=== PATIENT | female | born 1940 ===

== ENCOUNTER → 2019-12-30 09:34 | Outpatient (CLI) | payer MEDICARE, OTHER, SELFPAY ==
[2019-12-30 10:37] LABS: Add Manual Diff / Slide Review NO; Basophils Absolute Auto 0 /uL (0-100); Basophils Percent Auto 0.7 % (0-2); Eosinophils Absolute Auto 100 /uL (0-450); Eosinophils Percent Auto 2.4 % (2-4); Hematocrit 38.6 % (36-46); Hemoglobin 13.5 g/dL (12.0-16.0); Lymphocytes Absolute Auto 700 /uL (1100-4500); Lymphocytes Percent Auto 18.2 % (25-40); Mean Corpuscular Hemoglobin 32.8 PG (26-34); Mean Corpuscular Volume 93.7 fL (80-100); Monocytes Absolute Auto 400 /uL (0-900); Monocytes Percent Auto 9.6 % (3-14); Neutrophils Absolute Auto 2700 /uL (1500-7000); Neutrophils Percent Auto 69.1 % (50-75); Platelet Count 214 X10^3/uL (150-400); Red Blood Cell Count 4.12 X10^6/uL (4.0-5.2); Red Cell Distribution Width 13.4 % (11.6-14.8)
[2019-12-30 10:59] LABS: BUN Creatinine Ratio 39.3 (6-22); Blood Urea Nitrogen 22 mg/dL (7-17); Calcium 9.6 mg/dL (8.4-10.2); Carbon Dioxide 31 mmol/L (22-32); Chloride 101 mmol/L (98-107); Estimated Glomerular Filt Rate > 60.0 mL/min (>60); Glucose 96 mg/dL (80-110); HEMOLYSIS < 15 (0-50); Magnesium 1.6 mg/dL (1.6-2.3); Sodium 138 mmol/L (137-145)
[2019-12-30 11:58] LABS: TSH w/ Reflex to FT4 1.97 uIU/mL (0.47-4.68)
== END ==
PROVIDERS: PCP Internal Medicine; Referring Provider Internal Medicine; Visit Provider Internal Medicine
DX: I49.9 Cardiac arrhythmia, unspecified (principal); I10 Essential (primary) hypertension
CPT/HCPCS: 36415; 80048; 83735; 84100; 84443; 85025

== ENCOUNTER → 2020-03-06 15:49 | Outpatient (CLI) | payer MEDICARE, OTHER, SELFPAY ==
[2020-03-06 17:14] LABS: BUN Creatinine Ratio 41.3 (6-22); Blood Urea Nitrogen 26 mg/dL (7-17); Calcium 9.3 mg/dL (8.4-10.2); Carbon Dioxide 32 mmol/L (22-32); Chloride 103 mmol/L (98-107); Estimated Glomerular Filt Rate > 60.0 mL/min (>60); Glucose 102 mg/dL (80-110); HEMOLYSIS 16 (0-50); Potassium 4.4 mmol/L (3.4-5.1); Sodium 138 mmol/L (137-145)
[2020-03-06 17:30] LABS: Vitamin D 25 Hydroxy (D3) 33.9 ng/mL (30.0-100.0)
== END ==
PROVIDERS: PCP Internal Medicine; Referring Provider Internal Medicine; Visit Provider Internal Medicine
DX: M81.0 Age-related osteoporosis without current pathological fracture (principal)
CPT/HCPCS: 36415; 80048; 82306

== ENCOUNTER → 2020-07-09 09:50 | Outpatient (CLI) | payer MEDICARE, SELFPAY ==
--- NOTE | 2020-08-03 16:59 | PM.CARDMON.1 ---
Centralized Traffic Control Operator Report Referral & Results Date Patient Seen: 07/09/20 Requesting provider: Fito Abrams Indication: Arrhythmia Duration of monitoring (days): 7 Diary information: There were 6 patient triggered events and 1 patient diary entry Patient triggered events were associated with (within 45 seconds) sinus rhythm, PVCs, PACs, and ventricular trigeminy Patient diary event was associated with (within 45 seconds) sinus rhythm and PVCs Data: Minimum heart rate identified was 44 beats per minute at 23:40 on 07/15/2020 Maximum heart rate identified was 154 beats per minute at 11:42 on 07/09/2020 Maximum overall heart rate was 197 beats per minute at 14:23 on 07/14/2020 during a run of SVT Less than 1% of identified beats were supraventricular ectopic in origin which would classify them as rare Approximately 2.2% of identified beats were ventricular ectopic in origin which would classify them as occasional There were 3 runs of SVT the fastest being the 4 beat run at 197 beats per minute as above, the longest lasting 11 beats at a rate of 155 beats per minute. There were also runs of ventricular bigeminy and trigeminy including a 20.2nd run of ventricular trigeminy and a 10.2nd run of ventricular bigeminy Impression: 7 day cardiac cath technologist showing very rare very brief runs of SVT as above Patient with occasional PVCs including brief runs of ventricular bigeminy and ventricular trigeminy Clinical correlation suggested
== END ==
PROVIDERS: PCP Internal Medicine; Referring Provider Internal Medicine; Visit Provider Internal Medicine
DX: I49.9 Cardiac arrhythmia, unspecified (principal)
CPT/HCPCS: 93242; 93244

== ENCOUNTER 2021-02-01 10:04 | Emergency (ER) | payer MEDICARE, SELFPAY ==
[2021-02-01 10:11] VITALS: BP 165/72; PULSE 82; RESP 17; TEMP 36.3; O2SAT 99
--- NOTE | 2021-02-01 10:15 | DI.RAD.S_ITS ---
PROCEDURE: XR HAND RT MIN 3V INDICATIONS: fall, bruising and pain right hand. TECHNIQUE: 3 views of the hand(s) acquired. COMPARISON: None. FINDINGS: Bones: There is a mildly displaced fracture of the right 5th metacarpal shaft. No definite intra-articular involvement can be seen. There is a remote, healed fracture of the 3rd metacarpal shaft and potentially the 4th metacarpal shaft as well. Prominent degenerative changes are seen throughout, which are most prominent involving the 1st carpometacarpal joint. Milder degenerative changes are seen elsewhere, including involving the distal interphalangeal joints. Soft tissues: No suspicious soft tissue calcifications. IMPRESSION: There is a mildly displaced 5th metacarpal fracture seen. Remote fracture of the 3rd metacarpal shaft and potentially the 4th metacarpal shaft. Advanced underlying degenerative changes are seen, which are worst involving the 1st carpometacarpal joint. Dictated by: Bong Johnson M.D. on 02/01/2021 at 10:13 Approved by: Bong Johnson M.D. on 02/01/2021 at 10:16
--- NOTE | 2021-02-01 10:57 | ED.FALL ---
HPI - Fall General Chief Complaint: Fall Stated Complaint: RT HAND INJURY Time Seen by Provider: 02/01/21 10:23 Source: patient Mode of arrival: Ambulatory History of Present Illness HPI Narrative: 80-year-old female who is here for evaluation of a right hand injury. She states that 3 days ago she was out on a hike and fell forward. She did hit her head. No loss of consciousness. Not on blood thinners. Is here because of continued pain in her right hand. She does have other skin abrasions on her face and her knees but states that these seem to be healing appropriately with the time frame since the fall. Related Data Home Medications Medication Instructions Recorded Confirmed hydrochlorothiazide 25 mg tablet 12.5 mg PO DAILY tab 07/07/20 02/01/21 aspirin 81 mg tablet 81 mg PO DAILY 02/01/21 02/01/21 Allergies Allergy/AdvReac Type Severity Reaction Status Date / Time Penicillins Allergy Intermediate Hives Verified 02/01/21 10:14 Taxal Allergy Severe Anaphylaxis Uncoded 08/18/20 09:19 Review of Systems Eyes Comments: No vision changes, blurry vision or double vision ENT Comments: No dental pain, loose teeth or missing teeth Musculoskeletal Comments: Right hand injury Integumentary/Breasts Comments: Abrasions to face and knees Hematologic/Lymphatic On Anticoagulants: No Patient History Medical History Ankle fracture Chicken pox Chronic back pain Endometriosis (~1959) Essential hypertension (~1976) Foot pain H/O adenomatous polyp of colon (~2009) Measles Osteoarthritis Ovarian cyst (~1962) Painful menstrual periods (~1952) Peripheral neuropathy (~2003) Personal history of breast cancer (~2003) Rubella Surgical History (Updated 08/17/20 @ 22:19 by Gege Mccain) Anesthesia S/P bilateral foot surgery (~1999) S/P carpal tunnel release S/P hip replacement (~2014) S/P inguinal hernia repair S/P lumpectomy, left breast (~2003) S/P shoulder surgery (~1991) S/P total knee arthroplasty (~2018) Family History (Updated 08/17/20 @ 22:21 by Gege Mccain) Father Lung cancer Hypertension Parkinson disease Mother Uterine cancer Brother Autoimmune deficiency syndrome Grandfather History of heart disease Grandmother No problems noted. Social History Smoking Status: Never smoker Smoking Status: Never smoker alcohol intake frequency: 0-2 drinks per day Substance Use Type: does not use Exam Initial Vital Signs Initial Vital Signs: Vital Signs Temperature 97.4 F L 02/01/21 10:11 Pulse Rate 82 02/01/21 10:11 Respiratory Rate 17 02/01/21 10:11 Blood Pressure 165/72 H 02/01/21 10:11 Pulse Oximetry 99 02/01/21 10:11 Const General: cooperative, healthy appearing and comfortable HENMT Head: normal to inspection and normocephalic Eyes Pupils: PERRL EOM: EOM intact bilaterally Other: Superficial abrasions located around the right eye. Resp Effort & Inspection: normal respiratory effort Skin Other: Superficial abrasions located around the right eye. No active bleeding. No signs of infection. Neuro General: patient alert, patient awake and patient oriented x3 Extrem Other: Musculoskeletal exam is unremarkable except for tenderness to palpation along the right 5th metacarpal. Psych Appearance: grossly normal and well kempt Procedures Orthopedic Splinting/Casting Injury #1: Side: right Upper Extremity Injury Location: hand Upper Extremity Immobilizer: ulnar gutter Post splinting neuro exam: no change Post splinting vascular exam: no change Placed by: Nursing Scores GCS Kan coma scale eye opening: Spontaneous Kan coma scale verbal response: Orientated Standish coma scale motor response: Obey commands Standish coma scale total score: 15 Nexus Score for C-Spine Focal Neurologic deficit present: No Midline spinal tenderness present: No Altered level of conciousness present: No Intoxication present: No Distracting Injury Present: No Nexus Criteria for C-spine: 0 Course Orders Ordered: ED Orders 02/01/21 10:15 XR hand RT min 3V Stat Vital Signs Vital signs: Vital Signs - 8 hr 02/01/21 10:11 Temperature 97.4 F L Pulse Rate 82 Respiratory Rate 17 Blood Pressure 165/72 H Pulse Oximetry 99 MDM - Fall Imaging Data Extremity x-ray #1: Radiologist's Impression: [address] [address] XRay Report Signed Patient: Sonia Rick MR#: [id number] : 1940 Acct:[id number] Age/Sex: 80 / F Date of Service: 02/01/21 Loc: ED Accession Number: [id number] ?? Procedure: XR hand RT min 3V Ordering Provider: Harvinder Pelayo D.O. PROCEDURE:? XR HAND RT MIN 3V ? INDICATIONS:? fall, bruising and pain right hand. ? TECHNIQUE:? 3 views of the hand(s) acquired.? ? COMPARISON:? None. ? FINDINGS:? ? Bones:? There is a mildly displaced fracture of the right 5th metacarpal shaft.? No definite intra-articular involvement can be seen. ? There is a remote, healed fracture of the 3rd metacarpal shaft and potentially the 4th metacarpal shaft as well. ? Prominent degenerative changes are seen throughout, which are most prominent involving the 1st carpometacarpal joint.? Milder degenerative changes are seen elsewhere, including involving the distal interphalangeal joints.? ? Soft tissues:? No suspicious soft tissue calcifications.? ? ? IMPRESSION:? There is a mildly displaced 5th metacarpal fracture seen. ? Remote fracture of the 3rd metacarpal shaft and potentially the 4th metacarpal shaft. ? Advanced underlying degenerative changes are seen, which are worst involving the 1st carpometacarpal joint. ? ? Dictated by: Bong Johnson M.D. on 02/01/2021 at 10:13 ? ? Approved by: Bong Johnson M.D. on 02/01/2021 at 10:1 MDM Narrative Medical decision making narrative: Patient does have abrasions on her face that need no intervention here in the emergency department. We did discuss care of this. I feel that we can hold on head CT or facial CT your neck CT for now. Not on anticoagulation. She does have a right hand fracture. She was placed in a splint as described above. Was given care instructions and return precautions. She expressed understanding and agreement. Discharge Plan Departure Patient Disposition: Home Clinical Impression: Hand fracture, right Instructions: DI for a Hand Fracture, How to Take Care of Your Splint Activity Restrictions/Additional Instructions: The splint that was placed today does need to stay on and stay clean and stay dry. You need to treat it like a cast. Contact the Orthopedic Department at the number provided below for a follow-up as the splint will need to be transitioned into a cast. Return to the emergency department for any new or worsening symptoms Prescriptions: No Action hydrochlorothiazide 25 mg tablet 12.5 mg PO DAILY RF: 0 Adult Low Dose Aspirin 81 mg Tablet 81 mg PO DAILY RF: 0 Referrals: Fito Abrams MD [Primary Care Provider] - Raúl Garduno MD [Physician] -
[2021-02-01 12:33] VITALS: BP 145/66; PULSE 52; O2SAT 98
== END 2021-02-01 12:40 | disposition home or self-care (01) ==
PROVIDERS: Emergency Provider Emergency Medicine; PCP Internal Medicine
DX: S62.326A Displaced fracture of shaft of fifth metacarpal bone, right hand, initial encounter for closed fracture (principal); W18.30XA Fall on same level, unspecified, initial encounter; Y93.01 Activity, walking, marching and hiking
CPT/HCPCS: 29125; 73130; 99283

== ENCOUNTER → 2021-03-04 12:13 | Outpatient (CLI) | payer MEDICARE, SELFPAY ==
--- NOTE | 2021-03-04 12:14 | DI.ECHO.S_ITS ---
[facility] +---------+ : : [address] [place] : : : : [id number] : : : : Phone: [phone]+ Echocardiogram Report + + :Name: TYSON GR Study Date: 03/04/2021 Height: 65 in : :[facility] ReadingLocation: Weight: 115 lb : : Gender: Female BSA: 1.6 m2 : :: 1940 Age: 80 yrs BP: 140/89 mmHg: :Reason For Study: ventricular premature depolarization : :Ordering Physician: : :KAM Performed By: Walter Najera : :Referring: JUAN ESQUIVEL : + + Interpretation Summary Left ventricular systolic function appears normal with an estimated ejection fraction of 60 to 65% without any focal wall motion abnormality. There is mild proximal septal thickening, suggestive of hypertensive heart disease. Otherwise, the left ventricle appears normal in size and wall thickness with a probable diastolic relaxation abnormality and probable normal filling pressures. The right ventricle appears normal in size and systolic function. Right ventricular systolic pressure is at least 27 mmHg with a CVP of 3 mmHg. There is borderline right atrial enlargement. The mitral valve leaflets demonstrate a flat closure plane with an eccentric jet of mitral regurgitation directed posteriorly, suggestive of probable mild anterior leaflet prolapse producing mild to moderate mitral regurgitation. There is no other significant valvular abnormality. Procedure: A two-dimensional transthoracic echocardiogram with color flow and Doppler was performed. The study quality was technically adequate. There is no prior echocardiogram noted for this patient. The patient was in sinus rhythm with heart rates between 85-98 bpm during the exam. Left Ventricle: The left ventricle is normal in size and wall thickness. There is mild proximal septal thickening noted. Left ventricular systolic function appears normal without focal wall motion abnormalities. The ejection fraction is estimated to be 60-65%. Diastolic parameters suggest a relaxation abnormality of the left ventricle, consistent with probable normal filling pressures. Right Ventricle: The right ventricle is normal in size and function. Atria: The left atrial size is normal. The right atrium is borderline dilated. Right atrial volume index is 28 mL/mA?. There is no Doppler evidence for an interatrial shunt. Mitral Valve: The mitral valve leaflets appear mildly thickened, but open well. There is a flat closure plane of the the mitral valve leaflets. There is borderline mitral valve prolapse. The mitral regurgitant jet is posteriorly directed, which is consistent with anterior leaflet pathology. There is mild to moderate mitral regurgitation. Aortic Valve: The aortic valve is trileaflet. The aortic valve opens well. No aortic regurgitation is present. Tricuspid Valve: The tricuspid valve is normal. There is trace tricuspid regurgitation. The right ventricular systolic pressure is estimated to be at least 27 mmHg based on an estimated right atrial pressure of 3 mm Hg. Pulmonic Valve: The pulmonic valve is normal in structure and function. Great Vessels: The aortic root is normal size. The ascending aorta is normal in size. The aortic arch is normal in size. The IVC is of normal diameter and collapses greater than 50% with a sniff. This suggests a low right atrial pressure of 3 mm Hg. Pericardium/ Pleura There is no pericardial effusion. There is an anterior echo-free space consistent with a fat pad. There is no pleural effusion. MMode/2D Measurements & Calculations LVIDd: 3.8 cm LVOT diam: 1.7 cm LVIDs: 2.6 cm Ao root diam: 2.8 cm FS: 31.6 % asc Aorta Diam: 3.4 cm IVSd: 1.0 cm Ao Arch Diam (Prox Trans): 2.2 cm LVPWd: 0.90 cm LV grijalva. diameter/BSA (cm/m^2): 2.4 LV sys. diameter/BSA (cm/m^2): 1.7 LA A2 area: 14.8 cm2 RA long axis: 6.4 cm LA A4 area: 19.2 cm2 LA length (vol): 5.4 cm LA vol: 44.8 ml LA vol index: 28.7 ml/m2 LVLs ap4: 5.5 cm LVLd ap2: 6.0 cm LVLs ap2: 5.2 cm TAPSE_phl: 2.6 cm Doppler Measurements & Calculations Ao V2 max: 147.0 cm/sec LVOT Max Corey: 129.0 cm/sec Ao V2 mean: 116.0 cm/sec LV V1 max P.7 mmHg Ao max P.0 mmHg LV V1 VTI: 23.1 cm Ao mean P.0 mmHg HELLEN(I,D): 1.9 cm2 Ao V2 VTI: 28.2 cm HELLEN(V,D): 2.0 cm2 sev ratio: 0.82 HELLEN indexed to BSA (cm^2/m^2): 1.2 MV E max corey: 69.0 cm/sec TR max corey: 247.0 cm/sec MV A max corey: 113.1 cm/sec TR max P.4 mmHg MV E/A: 0.61 PA V2 max: 86.8 cm/sec Med Peak E' Corey: 6.0 cm/sec PA V2 mean: 63.5 cm/sec E/E' med: 11.5 PA mean P.0 mmHg Lat Peak E' Ocrey: 7.0 cm/sec PA pr(Accel): 38.5 mmHg E/E' lat: 9.9 E/e' average: 10.7 MV dec time: 0.10 sec SV(LVOT): 52.4 ml AV VR_phl: 0.88 HELLEN(VTI)/BSA_phl: 1.2 MV P1/2t-pr_phl: 33.0 msec Reading Physician:01:35 PM
== END ==
PROVIDERS: PCP Internal Medicine; Referring Provider Internal Medicine; Visit Provider Internal Medicine
DX: I34.0 Nonrheumatic mitral (valve) insufficiency (principal); I49.3 Ventricular premature depolarization
CPT/HCPCS: 93306

== ENCOUNTER 2021-05-31 11:37 | Emergency (ER) | payer MEDICARE, SELFPAY ==
[2021-05-31 11:53] VITALS: BP 139/74; PULSE 88; RESP 16; TEMP 36.2; O2SAT 98; BMI 19.6
[2021-05-31] MEDS: LIDOCAINE/PRILOCAINE 5 GM TOP (14:48)
[2021-05-31] MEDS: TRIMETH/SULFA 160/800 (DS) TABLET 1 TAB PO (14:48)
--- NOTE | 2021-05-31 15:07 | ED.SKABFB ---
HPI - Skin/Abscess/Foreign Bdy <NORRIS Ferris - Last Filed: 05/31/21 20:29> General Chief complaint: Skin/Abscess/Foreign Body Stated complaint: Cut on right foss not healing Time Seen by Provider: 05/31/21 14:24 Source: patient Mode of arrival: Ambulatory History of Present Illness HPI narrative: [age] female presents to the emergency department complaining right lower which occurred 9 days ago when she tripped and onto it is sure causing open wound of her right. She has been applying Bactroban and it has not yesterday she endorses that it started swelling and she was concerned about a skin infection. Patient states her last tetanus was 3.5 years ago. She endorses that she has a right total knee replacement and now that she has a possible infection in her leg she is concerned initially for antibiotics. Patient's primary care provider is Dr. Abrams. Patient states that she has not had any fever, feeling unwell, weakness in her leg, any purulence discharge coming from her wound. Related Data Home Medications Medication Instructions Recorded Confirmed aspirin 81 mg tablet 81 mg PO DAILY 02/01/21 02/22/21 Previous Rx's Medication Instructions Recorded hydrochlorothiazide 12.5 mg tablet 12.5 mg PO DAILY #90 tab 05/19/21 mupirocin 2 % topical ointment 1 applic TOPICAL BID #15 g 05/31/21 sulfamethoxazole 800 1 tab PO BID 7 Days #14 tab 05/31/21 mg-trimethoprim 160 mg tablet (Bactrim DS) Allergies Allergy/AdvReac Type Severity Reaction Status Date / Time paclitaxel Allergy Severe Anaphylaxis Verified 05/31/21 14:26 Penicillins Allergy Intermediate Hives Verified 05/31/21 11:59 Review of Systems <NORRIS Ferris - Last Filed: 05/31/21 20:29> Review of Systems Narrative: General: denies fever, chills, malaise, sweats, fatigue Head/Neck: denies headache, neck pain, dizziness Eyes: denies visual changes, eye pain Cardio: denies chest pain, palpitations, edema Respiratory: denies dyspnea, cough, orthopnea GI: denies abdominal pain, nausea, vomiting, or diarrhea : denies dysuria, hematuria, urinary retention, frequency or incontinence MSK: denies joint pain, muscle weakness Skin: denies rash, itching, small wound on the right lower leg with swelling that started yesterday Neuro: denies numbness, tingling Patient History <NORRIS Ferris - Last Filed: 05/31/21 20:29> Medical History Ankle fracture Chicken pox Chronic back pain Endometriosis (~1959) Essential hypertension (~1976) Foot pain H/O adenomatous polyp of colon (~2009) Measles Osteoarthritis Ovarian cyst (~1962) Painful menstrual periods (~1952) Peripheral neuropathy (~2003) Personal history of breast cancer (~2003) PVCs (premature ventricular contractions) Rubella Surgical History Anesthesia S/P bilateral foot surgery (~1999) S/P carpal tunnel release S/P hip replacement (~2014) S/P inguinal hernia repair S/P lumpectomy, left breast (~2003) S/P shoulder surgery (~1991) S/P total knee arthroplasty (~2018) Family History Father Lung cancer Hypertension Parkinson disease Mother Uterine cancer Brother Autoimmune deficiency syndrome Grandfather History of heart disease Grandmother No problems noted. Social History Smoking Status: Never smoker Smoking Status: Never smoker alcohol intake frequency: holidays/special occasions only Substance Use Type: does not use Exam <NORRIS Ferris - Last Filed: 05/31/21 20:29> Narrative Exam Narrative: Independently reviewed vitals signs and nursing notes. General: cooperative, comfortable, in no acute distress, well developed and well groomed Head: atraumatic, symmetrical facial expressions Neck: supple, atraumatic, without lymphadenopathy. Eyes: pupils equal round and reactive, EOMI, conjunctiva normal Nose: nares patent, no rhinorrhea Mouth/Throat: uvula midline, moist mucus membranes Cardiovascular: regular rate and rhythm, no peripheral edema, warm extremities Respiratory: normal effort, able to speak in complete sentences, no audible wheezing, stridor, or rales. No retractions or tachypnea. GI: abdomen soft, nontender to palpation, nondistended, no masses, no exquisite tenderness with exam, without guarding or rebound. MSK: moves all extremities, ambulatory w/steady gait, neurovascularly intact, no weakness Skin: brisk capillary refill, no rash, wound on right lower leg has surrounding erythema and mild edema, no purulence drainage, it is tender to palpate, no fluctuance, no palpable fluid collection Neuro: normal speech and cognition, A&O x3, normal tone Psych: mental status is grossly normal, congruent mood, normal affect, pleasant and cooperative Initial Vital Signs Initial Vital Signs: Vital Signs Temperature 97.2 F L 05/31/21 11:53 Pulse Rate 88 05/31/21 11:53 Respiratory Rate 16 05/31/21 11:53 Blood Pressure 139/74 05/31/21 11:53 Pulse Oximetry 98 05/31/21 11:53 <Silva Hernandez DO - Last Filed: 06/01/21 07:49> Initial Vital Signs Initial Vital Signs: Vital Signs Temperature 97.2 F L 05/31/21 11:53 Pulse Rate 88 05/31/21 11:53 Respiratory Rate 16 05/31/21 11:53 Blood Pressure 139/74 05/31/21 11:53 Pulse Oximetry 98 05/31/21 11:53 Course <NORRIS Ferris - Last Filed: 05/31/21 20:29> Orders Ordered: Discontinued Medications Bacitracin (Bacitracin Oint 0.9 Gm Pckt) 1 applic TOP NOW ONE Stop: 05/31/21 15:08 Last Admin: 05/31/21 15:10 Dose: 1 applic Documented by: TIA Lidocaine/Prilocaine (Lidocaine/Prilocaine 5 Gm) 5 gm TOP NOW ONE Stop: 05/31/21 14:35 Last Admin: 05/31/21 14:48 Dose: 5 gm Documented by: TIA Lidocaine/Sodium Bicarbonate (Lido 1%/Sod Bicarb 8.4% (10ml) 10 Ml Syringe) 10 ml INJ NOW ONE Stop: 05/31/21 14:25 Last Admin: 05/31/21 14:50 Dose: Not Given Documented by: TIA Trimethoprim/Sulfamethoxazole (Trimeth/Sulfa 160/800 (Ds) Tablet) 1 tab PO NOW ONE Stop: 05/31/21 14:33 Last Admin: 05/31/21 14:48 Dose: 1 tab Documented by: TIA Vital Signs Vital signs: Vital Signs - 8 hr 05/31/21 11:53 Temperature 97.2 F L Pulse Rate 88 Respiratory Rate 16 Blood Pressure 139/74 Pulse Oximetry 98 <Silva Hernandez DO - Last Filed: 06/01/21 07:49> Orders Ordered: Discontinued Medications Bacitracin (Bacitracin Oint 0.9 Gm Pckt) 1 applic TOP NOW ONE Stop: 05/31/21 15:08 Last Admin: 05/31/21 15:10 Dose: 1 applic Documented by: TIA Lidocaine/Prilocaine (Lidocaine/Prilocaine 5 Gm) 5 gm TOP NOW ONE Stop: 05/31/21 14:35 Last Admin: 05/31/21 14:48 Dose: 5 gm Documented by: TIA Lidocaine/Sodium Bicarbonate (Lido 1%/Sod Bicarb 8.4% (10ml) 10 Ml Syringe) 10 ml INJ NOW ONE Stop: 05/31/21 14:25 Last Admin: 05/31/21 14:50 Dose: Not Given Documented by: TIA Trimethoprim/Sulfamethoxazole (Trimeth/Sulfa 160/800 (Ds) Tablet) 1 tab PO NOW ONE Stop: 05/31/21 14:33 Last Admin: 05/31/21 14:48 Dose: 1 tab Documented by: TIA Vital Signs Vital signs: Vital Signs - 8 hr 05/31/21 11:53 Temperature 97.2 F L Pulse Rate 88 Respiratory Rate 16 Blood Pressure 139/74 Pulse Oximetry 98 MDM - Skin/Abscess/Foreign Bdy <NORRIS Ferris - Last Filed: 05/31/21 20:29> MDM Narrative Medical decision making narrative: This is a very pleasant 80-year-old female with history of breast cancer, impaired proprioception, and hypertension who presents to the emergency department complaining of wound to her right lower leg that occurred 9 days ago, and yesterday started swelling, became more painful, and now has erythema. Appears most like cellulitis at this time, no fluctuance or palpable fluid collection, there appeared to be some debris in her wound, very thorough wound cleansing was completed with Hibiclens, and scrubbing at the base of the wound. Bacitracin was applied, patient was given a prescription for Bactrim, and mupirocin topical ointment. Patient understands to take these medications and watch this for any worsening. She was given strict return precautions, her last tetanus was 3 years ago. Patient is appropriate and amenable to discharge home. Vital signs are stable on repeat examination is unremarkable. Patient has been informed of results. Patient has been given strict return to ER precautions for any new or worsening symptoms. Patient understands to follow up closely with outpatient providers as instructed. Patient understands plan and agrees to discharge home. All questions and concerns answered at this time. Discharge Plan Departure Patient Disposition: Home Clinical Impression: Cellulitis Instructions: DI for Cellulitis -- Adult, DI for Wound Infection Activity Restrictions/Additional Instructions: *You have been diagnosed with a skin infection of these wounds on your right leg. Take the antibiotic twice a day for the next week, apply the antibiotic ointment twice a day. Please follow-up with Dr. Abrams for a follow-up to see if this is improving. You do not need another tetanus for about 6 years. Thank you for trusting us with your care. Please keep it clean, change your bandages and apply a Band-Aid during the day over the ointment. Feel better soon. *What to do: *Please continue to take your regular medications as directed. [ x] New medication prescriptions sent to your pharmacy: [[facility] ] [ ] New medication written as a paper prescription [ ] No new medications given *Please follow up with your primary care provider in 2-3 days, call for an appointment. Let them know you were seen in the Emergency Department and that we asked that you be seen for follow-up. We will electronically transmit a record of today's note if your PCP is in our system *If you do not have a primary care provider please contact [phone] to establish care with one of the [facility] primary care providers. *Return to Emergency Department if you should have any new, worsening or concerning symptoms, such as [fever greater than 101F, chills, worsening pain, persistent vomiting or other bothersome symptoms] Prescriptions: New sulfamethoxazole-trimethoprim [Bactrim DS] 800-160 mg tablet 1 tab PO BID 7 Days Qty: 14 0RF mupirocin 2 % ointment 1 applic topical BID Qty: 15 0RF No Action hydrochlorothiazide 12.5 mg tablet 12.5 mg PO DAILY Qty: 90 1RF Adult Low Dose Aspirin 81 mg Tablet 81 mg PO DAILY 0RF Referrals: Fito Abrams MD [Primary Care Provider] - <Silva Hernandez DO - Last Filed: 06/01/21 07:49> Cosign ED Attending Cosignature Attestation: I was immediately available in the department for consultation. Documentation has been reviewed. I agree with assessment and plan.
[2021-05-31] MEDS: BACITRACIN OINT 0.9 GM PCKT 1 APPLIC TOP (15:10)
--- NOTE | 2021-05-31 15:15 | PC.NURSE ---
Bacitracin and bandage applied
--- NOTE | 2021-05-31 15:16 | PC.NURSE ---
Small abrasion noted to the lateral lower L leg. Slight skin discoloration around abrasion. No bleeding or discharge from wound.
== END 2021-05-31 15:17 | disposition home or self-care (01) ==
PROVIDERS: Emergency Provider Nurse Practitioner Critical Care Medicine; PCP Internal Medicine
DX: L03.115 Cellulitis of right lower limb (principal)
CPT/HCPCS: 99283

== ENCOUNTER → 2021-06-10 07:47 | Outpatient (CLI) | payer MEDICARE, SELFPAY ==
--- NOTE | 2021-06-10 | DI.MG.S_ITS ---
BILATERAL DIGITAL SCREENING MAMMOGRAM 3D/2D WITH CAD POST LUMPECTOMY: 06/10/2021 CLINICAL: Routine screening. Personal history of left breast cancer. Comparison is made to exams dated: 03/18/2020 mammogram, 05/10/2019 mammogram, 03/26/2018 mammogram, and 03/18/2020 ultrasound - out side. The tissue of both breasts is extremely dense, which lowers the sensitivity of mammography. Current study was also evaluated with a Computer Aided Detection (CAD) system. There are benign post operative findings in the left breast. No significant masses, calcifications, or other findings are seen in either breast. There has been no significant interval change. IMPRESSION: BENIGN There is no mammographic evidence of malignancy. A 1 year screening mammogram is recommended. This exam was interpreted at Station ID: [id number]. NOTE: For mammograms, a report in lay terms will be sent to the patient. Approximately 15% of breast malignancies will not be visualized mammographically. In the management of a palpable breast mass, a negative mammogram must not discourage biopsy of a clinically suspicious lesion. Electronically Signed By: Checo ingram/maryann:06/10/2021 09:47:36 letter sent: Normal Exam ACR BI-RADS Category 2: Benign Finding(s) 3342F
== END ==
PROVIDERS: PCP Internal Medicine; Referring Provider Internal Medicine; Visit Provider Internal Medicine
DX: Z12.31 Encounter for screening mammogram for malignant neoplasm of breast (principal); Z85.3 Personal history of malignant neoplasm of breast
CPT/HCPCS: 77063; 77067

== ENCOUNTER → 2022-01-01 09:22 | Outpatient (CLI) | payer MEDICARE, SELFPAY ==
[2022-01-01 10:08] LABS: Add Manual Diff / Slide Review NO; Basophils Absolute Auto 0 /uL (0-100); Basophils Percent Auto 0.6 % (0-2); Eosinophils Absolute Auto 100 /uL (0-450); Eosinophils Percent Auto 1.7 % (2-4); Hemoglobin 13.9 g/dL (12.0-16.0); Lymphocytes Absolute Auto 1000 /uL (1100-4500); Mean Corpuscular HGB Conc 33.9 % (30-36); Mean Corpuscular Hemoglobin 31.7 PG (26-34); Mean Corpuscular Volume 93.4 fL (80-100); Monocytes Absolute Auto 400 /uL (0-900); Monocytes Percent Auto 10.6 % (3-14); Neutrophils Absolute Auto 2300 /uL (1500-7000); Neutrophils Percent Auto 60.1 % (50-75); Platelet Count 209 X10^3/uL (150-400); Red Blood Cell Count 4.39 X10^6/uL (4.0-5.2); Red Cell Distribution Width 13.1 % (11.6-14.8); White Blood Cell Count 3.8 X10^3/uL (4.5-11.0)
[2022-01-01 10:28] LABS: BUN Creatinine Ratio 24.6 (6-22); Blood Urea Nitrogen 15 mg/dL (7-17); Calcium 9.5 mg/dL (8.4-10.2); Carbon Dioxide 29 mmol/L (22-32); Chloride 103 mmol/L (98-107); Cholesterol 228 mg/dL (140-199); Estimated Glomerular Filt Rate > 60 mL/min (>60); Glucose 95 mg/dL (80-110); HDL Cholesterol 81 mg/dL (40-60); HEMOLYSIS < 15 (0-50); LDL Cholesterol Calculated 132 mg/dL (<100); Potassium 4.1 mmol/L (3.4-5.1); Sodium 138 mmol/L (137-145); Triglycerides 76 mg/dL (35-150)
== END ==
PROVIDERS: PCP Internal Medicine; Referring Provider Internal Medicine; Visit Provider Internal Medicine
DX: I10 Essential (primary) hypertension (principal); G89.29 Other chronic pain; M54.9 Dorsalgia, unspecified; Z13.6 Encounter for screening for cardiovascular disorders; D64.9 Anemia, unspecified
CPT/HCPCS: 36415; 80048; 80061; 85025

== ENCOUNTER 2022-01-21 09:37 | Emergency (ER) | payer MEDICARE, SELFPAY ==
--- NOTE | 2022-01-21 09:52 | DI.RAD.S_ITS ---
PROCEDURE: XR HIP W PEL IF DONE RT 2V INDICATIONS: fall TECHNIQUE: 2 views of the hip were acquired. COMPARISON: None. FINDINGS: Bones: Pelvic ring is intact. Moderate left hip degenerative changes. Appropriate appearance of the right hip arthroplasty. There is surrounding heterotopic ossification. Soft tissues: Moderate fecal loading. IMPRESSION: No acute radiographic abnormality. 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 Moderate left hip arthrosis. If there is high concern for occult injury, consider repeat radiography or cross-sectional imaging. Dictated by: Anthony Renee M.D. on 01/21/2022 at 10:58 Approved by: Anthony Renee M.D. on 01/21/2022 at 11:00
[2022-01-21 10:03] VITALS: BP 155/74; PULSE 62; RESP 19; TEMP 36.7; O2SAT 97; BMI 19.3
--- NOTE | 2022-01-21 10:13 | ED_ITS ---
HPI - Fall General Chief Complaint: Extremity Injury, Lower Stated Complaint: fell 6 days ago trouble taking deep breath Time Seen by Provider: 01/21/22 09:39 Source: patient Mode of arrival: Family Vehicle History of Present Illness HPI Narrative: Patient is an 81-year-old female who has peripheral neuropathy hypertension presents today after fall 6 days ago. She complains of right-sided rib pain ongoing. Hurts every time she moves or breathes. She has not taken anything at home for it. Her hip hurts but she is ambulatory without any difficulty. She did not hit her head or lose consciousness. There are no other injuries. Related Data Previous Rx's Medication Instructions Recorded hydrochlorothiazide 12.5 mg tablet 12.5 mg PO DAILY #90 tabs 12/24/21 hydrocodone 5 mg-acetaminophen 325 1 tab PO Q6H PRN pain #10 tabs 01/21/22 mg tablet Allergies Allergy/AdvReac Type Severity Reaction Status Date / Time paclitaxel Allergy Severe Anaphylaxis Verified 01/21/22 09:52 Penicillins Allergy Intermediate Hives Verified 01/21/22 09:52 Review of Systems Review of Systems Narrative: GENERAL: Denies chills, fatigue, malaise, fever, sweats, travel HEENT: Denies sinus pain, ear pain, sore throat, difficulty swallowing, neck pain RESPIRATORY: See HPI CARDIOVASCULAR: Denies chest pain, palpitations, orthopnea, edema GASTROINTESTINAL: Denies nausea, vomiting, abdominal pain, diarrhea, constipation, melena. : Denies dysuria, frequency, incontinence, hematuria, urinary retention, flank pain. MUSCULOSKELETAL: See HPI SKIN: No rash, no erythema, no pruritus NEUROLOGIC: Denies weakness, dizziness, headache, numbness, change in speech, confusion PSYCHIATRIC: No concerning psychosocial issues. 12 point review of systems is negative except for those stated above and HPI Patient History Medical History Ankle fracture Chicken pox Chronic back pain Endometriosis (~1959) Essential hypertension (~1976) Foot pain H/O adenomatous polyp of colon (~2009) Measles Osteoarthritis Ovarian cyst (~1962) Painful menstrual periods (~1952) Peripheral neuropathy (~2003) Personal history of breast cancer (~2003) PVCs (premature ventricular contractions) Rubella Surgical History Anesthesia S/P bilateral foot surgery (~1999) S/P carpal tunnel release S/P hip replacement (~2014) S/P inguinal hernia repair S/P lumpectomy, left breast (~2003) S/P shoulder surgery (~1991) S/P total knee arthroplasty (~2018) Family History Father Lung cancer Hypertension Parkinson disease Mother Uterine cancer Brother Autoimmune deficiency syndrome Grandfather History of heart disease Grandmother No problems noted. Social History Smoking Status: Never smoker Smoking Status: Never smoker alcohol intake frequency: holidays/special occasions only Substance Use Type: does not use Exam Initial Vital Signs Initial Vital Signs: Vital Signs Temperature 98.1 F 01/21/22 10:03 Pulse Rate 62 01/21/22 10:03 Respiratory Rate 19 01/21/22 10:03 Blood Pressure 155/74 H 01/21/22 10:03 Pulse Oximetry 97 01/21/22 10:03 Oxygen Delivery Method 01/21/22 10:03 GENERAL: Alert pleasant 81-year-old female HEENT: Head atraumatic,EOMI, pupils reactive, face symmetric, moist mucous membranes CARDIOVASCULAR: Regular rate and rhythm without murmurs, rubs or gallops. RESPIRATORY: Breath sounds equal bilaterally, no wheezes rales or rhonchi. Pain right rib approximately rib 8-9. No paradoxical movement ABDOMEN: Soft, nontender. Normoactive bowel sounds all 4 quadrants. No guarding or rebound. EXTREMITIES: Normal range of motion, no clubbing or edema. Neurovascularly intact Right hip nontender pelvis stable NEUROLOGICAL: Alert and oriented x4. SKIN: Warm, dry, no laceration, no petechiae, no rashes or lesions. Course Orders Ordered: ED Orders 01/21/22 09:52 XR hip w pel if done RT 2V Stat 01/21/22 10:16 XR ribs RT min 3V w CXR1V Stat Vital Signs Vital signs: Vital Signs - 8 hr 01/21/22 10:03 01/21/22 11:46 Temperature 98.1 F Pulse Rate 62 61 Respiratory Rate 19 16 Blood Pressure 155/74 H 145/65 H Pulse Oximetry 97 96 Oxygen Delivery Method Room Air Room Air MDM - Fall Imaging Data Chest x-ray: Radiologist's Impression: ?Sonia Rick MR#: [id number] : 1940 Acct:[id number] Age/Sex: 81 / F Date of Service: 01/21/22 Loc: ED Accession Number: [id number] ?? Procedure: XR ribs RT min 3V w CXR1V Ordering Provider: Silva Hernandez D.O. PROCEDURE:? XR RIBS RT MIN 3V W CXR 1V ? INDICATIONS:? fall ? TECHNIQUE:? 2 views of the right ribs were acquired, along with a single view chest.? ? COMPARISON:? None. ? FINDINGS:? ? Surgical changes and devices:? Left chest wall/axillary clips partially seen. ? Bones and chest wall:? No displaced fracture identified.? Right shoulder degenerative changes. ? Lungs and pleura:? No pleural effusions or pneumothorax.? Lungs appear clear.? ? Mediastinum:? Mediastinal contours appear normal.? Heart size is normal.? ? IMPRESSION:? No displaced fracture is identified.? If there is high concern for occult injury, consider repeat radiography or cross-sectional imaging. ? ? Dictated by: Anthony Renee M.D. on 01/21/2022 at 11:00 ? ? Extremity x-ray #1: Radiologist's Impression: Sonia Rick MR#: [id number] : 1940 Acct:[id number] Age/Sex: 81 / F Date of Service: 01/21/22 Loc: ED Accession Number: [id number] ?? Procedure: XR hip w pel if done RT 2V Ordering Provider: Silva Hernandez D.O. PROCEDURE:? XR HIP W PEL IF DONE RT 2V ? INDICATIONS:? fall ? TECHNIQUE:? 2 views of the hip were acquired.? ? COMPARISON:? None. ? FINDINGS:? ? Bones:? Pelvic ring is intact.? Moderate left hip degenerative changes.? Appropriate appearance of the right hip arthroplasty.? There is surrounding heterotopic ossification. ? Soft tissues:? Moderate fecal loading. ? IMPRESSION:? No acute radiographic abnormality.? 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 Moderate left hip arthrosis.? If there is high concern for occult injury, consider repeat radiography or cross-sectional imaging. ? ? Dictated by: Anthony Renee M.D. on 01/21/2022 at 10:58 ? ? [facility] Narrative Medical decision making narrative: Patient overall appears well. X-ray does not show any fracture however I do suspect she may have a slight fracture not seen. Management is the same with pain control. She has previously tolerated Tylenol with codeine. She cannot have ibuprofen secondary to ulcer. Discharge Plan Departure Patient Disposition: Home Clinical Impression: Contusion of rib on right side Instructions: DI for Rib Contusion Activity Restrictions/Additional Instructions: *You have been diagnosed with right rib contusion *What to do: At this time her x-rays are negative for any fracture however you might have a slight fracture in her ribs that as just not seen on the x-ray. Supportive care and pain control only. *Continue to take medications as directed Hydrocodone 1 tab every 6 hours if needed for severe pain or just at night--> SENT TO [facility] *Follow up with your primary care provider in 2-3 days or call [phone] *Return to ER if you should have increasing pain shortness of breath or any new, worsening or concerning symptoms CONTROLLED SUBSTANCE DISCHARGE (Narcotoic/benzodiazepine/Flexeril/Phenergan) 1. You have been prescribed narcotic medications, it does have acetaminophen/Tylenol/paracetamol in it, DO NOT TAKE MORE THAN 4,00mg in 24 hours of Tylenol. TRAMADOL DOES NOT CONTAIN TYLENOL 2. Please understand that we cannot provide further refills of narcotics, benzodiazepines or controlled substances through the ED and her pain management will need to be through your provider. 3. While on these medications you cannot drive or operate heavy machinery. 4. You cannot sign legal documents or perform any duties such as this. 5. As long as you're taking opiate pain medications he should also be taking a stool softener such as Colace, Dulcolax, MiraLAX or prune juice, to help avoid constipation. Prescriptions: New hydrocodone-acetaminophen 5-325 mg tablet 1 tab PO Q6H PRN (Reason: pain) Qty: 10 0RF No Action hydrochlorothiazide 12.5 mg tablet 12.5 mg PO DAILY Qty: 90 3RF Referrals: Fito Abrams MD [Primary Care Provider] - Visit Report Forms: Patient Portal/API
--- NOTE | 2022-01-21 10:16 | DI.RAD.S_ITS ---
PROCEDURE: XR RIBS RT MIN 3V W CXR 1V INDICATIONS: fall TECHNIQUE: 2 views of the right ribs were acquired, along with a single view chest. COMPARISON: None. FINDINGS: Surgical changes and devices: Left chest wall/axillary clips partially seen. Bones and chest wall: No displaced fracture identified. Right shoulder degenerative changes. Lungs and pleura: No pleural effusions or pneumothorax. Lungs appear clear. Mediastinum: Mediastinal contours appear normal. Heart size is normal. IMPRESSION: No displaced fracture is identified. If there is high concern for occult injury, consider repeat radiography or cross-sectional imaging. Dictated by: Anthony Renee M.D. on 01/21/2022 at 11:00 Approved by: Anthony Renee M.D. on 01/21/2022 at 11:01
--- NOTE | 2022-01-21 10:16 | ED_ITS ---
HPI - Fall General Chief Complaint: Extremity Injury, Lower Stated Complaint: fell 6 days ago trouble taking deep breath Time Seen by Provider: 01/21/22 09:39 Source: patient Mode of arrival: Family Vehicle History of Present Illness HPI Narrative: Patient is an 81-year-old female with history of neuropathy frequent falls presenting today after a fall 6 days ago. She was walking with walking sticks she could tell that she was going to fall so she did not face plant and she usually does. But she did fall onto her right side. Her right ribs and right hip hurt a she is able to walk. That her ribs hurt the most with movement. Related Data Previous Rx's Medication Instructions Recorded hydrochlorothiazide 12.5 mg tablet 12.5 mg PO DAILY #90 tabs 12/24/21 hydrocodone 5 mg-acetaminophen 325 1 tab PO Q6H PRN pain #10 tabs 01/21/22 mg tablet Allergies Allergy/AdvReac Type Severity Reaction Status Date / Time paclitaxel Allergy Severe Anaphylaxis Verified 01/21/22 09:52 Penicillins Allergy Intermediate Hives Verified 01/21/22 09:52 Review of Systems Review of Systems Narrative: GENERAL: Denies chills, fatigue, malaise, fever, sweats, travel HEENT: Denies sinus pain, ear pain, sore throat, difficulty swallowing, neck pain RESPIRATORY: Denies dyspnea, cough, wheezing, hemoptysis, sputum. CARDIOVASCULAR: Denies chest pain, palpitations, orthopnea, edema GASTROINTESTINAL: Denies nausea, vomiting, abdominal pain, diarrhea, constipation, melena. : Denies dysuria, frequency, incontinence, hematuria, urinary retention, flank pain. MUSCULOSKELETAL: See HPI SKIN: No rash, no erythema, no pruritus NEUROLOGIC: Denies weakness, dizziness, headache, numbness, change in speech, confusion PSYCHIATRIC: No concerning psychosocial issues. 12 point review of systems is negative except for those stated above and HPI Patient History Medical History Ankle fracture Chicken pox Chronic back pain Endometriosis (~1959) Essential hypertension (~1976) Foot pain H/O adenomatous polyp of colon (~2009) Measles Osteoarthritis Ovarian cyst (~1962) Painful menstrual periods (~1952) Peripheral neuropathy (~2003) Personal history of breast cancer (~2003) PVCs (premature ventricular contractions) Rubella Surgical History Anesthesia S/P bilateral foot surgery (~1999) S/P carpal tunnel release S/P hip replacement (~2014) S/P inguinal hernia repair S/P lumpectomy, left breast (~2003) S/P shoulder surgery (~1991) S/P total knee arthroplasty (~2019) Family History Father Lung cancer Hypertension Parkinson disease Mother Uterine cancer Brother Autoimmune deficiency syndrome Grandfather History of heart disease Grandmother No problems noted. Social History Smoking Status: Never smoker Smoking Status: Never smoker alcohol intake frequency: holidays/special occasions only Substance Use Type: does not use Exam Initial Vital Signs Initial Vital Signs: Vital Signs Temperature 98.1 F 01/21/22 10:03 Pulse Rate 62 01/21/22 10:03 Respiratory Rate 19 01/21/22 10:03 Blood Pressure 155/74 H 01/21/22 10:03 Pulse Oximetry 97 01/21/22 10:03 Oxygen Delivery Method 01/21/22 10:03 GENERAL: Alert pleasant well-appearing 61-year-old female HEENT: Head atraumatic,EOMI, pupils reactive, face symmetric, moist mucous membranes CARDIOVASCULAR: Regular rate and rhythm without murmurs, rubs or gallops. RESPIRATORY: Breath sounds equal bilaterally, no wheezes rales or rhonchi. Painful rib around 8 or 9 tender to touch no paradoxical movement ABDOMEN: Soft, nontender. Normoactive bowel sounds all 4 quadrants. No guarding or rebound. EXTREMITIES: Normal range of motion, no clubbing or edema. Neurovascularly intact. Pelvis and hips stable NEUROLOGICAL: Alert and oriented x4.Normal gait and speech. SKIN: Warm, dry, no laceration, no petechiae, no rashes or lesions. Course Orders Ordered: ED Orders 01/21/22 09:52 XR hip w pel if done RT 2V Stat 01/21/22 10:16 XR ribs RT min 3V w CXR1V Stat Vital Signs Vital signs: Vital Signs - 8 hr 01/21/22 10:03 Temperature 98.1 F Pulse Rate 62 Respiratory Rate 19 Blood Pressure 155/74 H Pulse Oximetry 97 Oxygen Delivery Method Room Air MDM - Fall Imaging Data Chest x-ray: Radiologist's Impression: XRay Report Signed Patient: Sonia Rick MR#: [id number] : 1940 Acct:[id number] Age/Sex: 81 / F Date of Service: 01/21/22 Loc: ED Accession Number: [id number] ?? Procedure: XR ribs RT min 3V w CXR1V Ordering Provider: Silva Hernandez D.O. PROCEDURE:? XR RIBS RT MIN 3V W CXR 1V ? INDICATIONS:? fall ? TECHNIQUE:? 2 views of the right ribs were acquired, along with a single view chest.? ? COMPARISON:? None. ? FINDINGS:? ? Surgical changes and devices:? Left chest wall/axillary clips partially seen. ? Bones and chest wall:? No displaced fracture identified.? Right shoulder degenerative changes. ? Lungs and pleura:? No pleural effusions or pneumothorax.? Lungs appear clear.? ? Mediastinum:? Mediastinal contours appear normal.? Heart size is normal.? ? IMPRESSION:? No displaced fracture is identified.? If there is high concern for occult injury, consider repeat radiography or cross-sectional imaging. ? ? Dictated by: Anthony Renee M.D. on 01/21/2022 at 11:00 ? ? Extremity x-ray #1: Radiologist's Impression: [place] [id number] XRay Report Signed Patient: Sonia Rick MR#: [id number] : 1940 Acct:[id number] Age/Sex: 81 / F Date of Service: 01/21/22 Loc: ED Accession Number: [id number] ?? Procedure: XR hip w pel if done RT 2V Ordering Provider: Silva Hernandez D.O. PROCEDURE:? XR HIP W PEL IF DONE RT 2V ? INDICATIONS:? fall ? TECHNIQUE:? 2 views of the hip were acquired.? ? COMPARISON:? None. ? FINDINGS:? ? Bones:? Pelvic ring is intact.? Moderate left hip degenerative changes.? Appropriate appearance of the right hip arthroplasty.? There is surrounding heterotopic ossification. ? Soft tissues:? Moderate fecal loading. ? IMPRESSION:? No acute radiographic abnormality.? 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 Moderate left hip arthrosis.? If there is high concern for occult injury, consider repeat radiography or cross-sectional imaging. ? ? Dictated by: Anthony Renee M.D. on 01/21/2022 at 10:58 ? ? MDM Narrative Medical decision making narrative: Patient's frequent falls she fell 6 days ago with pain in her right ribs. X- rays negative but no pneumothorax. I suspect that she may have a mild rib fracture. Pain control only. I discussed this with her. She says she can not take ibuprofen secondary to his ulcer. She has previously taken Tylenol with codeine without any issues Discharge Plan Departure Patient Disposition: Home Clinical Impression: Contusion of rib on right side Instructions: DI for Rib Contusion Activity Restrictions/Additional Instructions: *You have been diagnosed with right rib contusion *What to do: At this time her x-rays are negative for any fracture however you might have a slight fracture in her ribs that as just not seen on the x-ray. Supportive care and pain control only. *Continue to take medications as directed Hydrocodone 1 tab every 6 hours if needed for severe pain or just at night--> SENT TO [facility] *Follow up with your primary care provider in 2-3 days or call [phone] *Return to ER if you should have increasing pain shortness of breath or any new, worsening or concerning symptoms CONTROLLED SUBSTANCE DISCHARGE (Narcotoic/benzodiazepine/Flexeril/Phenergan) 1. You have been prescribed narcotic medications, it does have acetaminophen/ Tylenol/paracetamol in it, DO NOT TAKE MORE THAN 4,00mg in 24 hours of Tylenol. TRAMADOL DOES NOT CONTAIN TYLENOL 2. Please understand that we cannot provide further refills of narcotics, benzodiazepines or controlled substances through the ED and her pain management will need to be through your provider. 3. While on these medications you cannot drive or operate heavy machinery. 4. You cannot sign legal documents or perform any duties such as this. 5. As long as you're taking opiate pain medications he should also be taking a stool softener such as Colace, Dulcolax, MiraLAX or prune juice, to help avoid constipation. Prescriptions: New hydrocodone-acetaminophen 5-325 mg tablet 1 tab PO Q6H PRN (Reason: pain) Qty: 10 0RF No Action hydrochlorothiazide 12.5 mg tablet 12.5 mg PO DAILY Qty: 90 3RF Referrals: Fito Abrams MD [Primary Care Provider] -
[2022-01-21 11:46] VITALS: BP 145/65; PULSE 61; RESP 16; O2SAT 96
== END 2022-01-21 11:48 | disposition home or self-care (01) ==
PROVIDERS: Emergency Provider Emergency Medicine; PCP Internal Medicine
DX: S20.211A Contusion of right front wall of thorax, initial encounter (principal); M25.551 Pain in right hip; W19.XXXA Unspecified fall, initial encounter
CPT/HCPCS: 71101; 73502; 99283

== ENCOUNTER 2022-03-17 09:22 | Emergency (ER) | payer MEDICARE, SELFPAY ==
[2022-03-17 09:44] VITALS: BP 162/70; PULSE 70; RESP 15; TEMP 36.6; O2SAT 97
--- NOTE | 2022-03-17 12:07 | ED_ITS ---
HPI - Skin/Abscess/Foreign Bdy <Jose Lao PA-C - Last Filed: 03/17/22 12:30> General Chief complaint: Skin/Abscess/Foreign Body Stated complaint: cellulitis in left foot acutely 3 days Time Seen by Provider: 03/17/22 11:45 Source: patient Mode of arrival: Ambulatory Limitations: no limitations History of Present Illness HPI narrative: This is an 81-year-old female presents to the emergency department due to left 2nd toe pain to the plantar aspect for the last couple of weeks. She states that she has peripheral neuropathy although not diabetic and reports some pain to her left 2nd toe that gets worse with long days of walking. She also states that there has been redness around the toe that has spread up to the top of her foot. Patient states that she had an appointment with a airline customer service agent but was canceled due to the weather. Denies any fevers, nausea, vomiting, or any other concerning signs or symptoms. Related Data Previous Rx's Medication Instructions Recorded hydrochlorothiazide 12.5 mg tablet 12.5 mg PO DAILY #90 tabs 12/24/21 hydrocodone 5 mg-acetaminophen 325 1 tab PO Q6H PRN pain #10 tabs 01/21/22 mg tablet cephalexin 500 mg capsule 500 mg PO QID 5 days #20 caps 03/17/22 Allergies Allergy/AdvReac Type Severity Reaction Status Date / Time paclitaxel Allergy Severe Anaphylaxis Verified 03/17/22 09:44 Penicillins Allergy Intermediate Hives Verified 03/17/22 09:44 Review of Systems <Jose Lao PA-C - Last Filed: 03/17/22 12:30> Review of Systems Narrative: GENERAL: Denies chills, fatigue, malaise, fever, sweats. HEENT: Denies sinus pain, ear pain, sore throat, difficulty swallowing, dizziness. RESPIRATORY: Denies dyspnea, cough, wheezing, hemoptysis, sputum. CARDIOVASCULAR: Denies chest pain, palpitations, orthopnea, edema, GASTROINTESTINAL: Denies nausea, vomiting, abdominal pain, diarrhea, constipation, melena. : Denies dysuria, frequency, incontinence, hematuria, urinary retention. MUSCULOSKELETAL: Left 2nd toe pain SKIN: toe lesion NEUROLOGIC: Peripheral neuropathy. Denies weakness, headache, numbness, change in speech, confusion, seizures, . PSYCHIATRIC: No concerning psychosocial issues. 12 point review of systems is negative except for those stated above Patient History <Jose Lao PA-C - Last Filed: 03/17/22 12:30> Medical History Ankle fracture Chicken pox Chronic back pain Endometriosis (~1959) Essential hypertension (~1976) Foot pain H/O adenomatous polyp of colon (~2009) Measles Osteoarthritis Ovarian cyst (~1962) Painful menstrual periods (~1952) Peripheral neuropathy (~2003) Personal history of breast cancer (~2003) PVCs (premature ventricular contractions) Rubella Surgical History Anesthesia S/P bilateral foot surgery (~1999) S/P carpal tunnel release S/P hip replacement (~2014) S/P inguinal hernia repair S/P lumpectomy, left breast (~2003) S/P shoulder surgery (~1991) S/P total knee arthroplasty (~2018) Family History Father Lung cancer Hypertension Parkinson disease Mother Uterine cancer Brother Autoimmune deficiency syndrome Grandfather History of heart disease Grandmother No problems noted. Social History Smoking Status: Never smoker Smoking Status: Never smoker alcohol intake frequency: holidays/special occasions only Substance Use Type: does not use Exam <Jose Lao PA-C - Last Filed: 03/17/22 12:30> Narrative Exam Narrative: GENERAL: Well-developed patient, in mild distress. HEAD: Atraumatic. Normocephalic. EYES: Pupils equal round and reactive. Extraocular motions intact. No scleral icterus. No injection or drainage. ENT: Nose without bleeding, purulent drainage. Throat without erythema, tonsillar hypertrophy or exudate. Airway patent. NECK: Trachea midline. Non tender EXTREMITIES: No edema or joint tenderness. BACK: Nontender without deformity or crepitance. No flank tenderness. NEURO: AOx3. SKIN: Suspected corn to the bottom of the left 2nd toe. Minimal surrounding erythema. Possible very mild erythema to the distal portion of the dorsal aspect of the foot. Cool to the touch. Initial Vital Signs Initial Vital Signs: Vital Signs Temperature 97.8 F 03/17/22 09:44 Pulse Rate 70 03/17/22 09:44 Respiratory Rate 15 03/17/22 09:44 Blood Pressure 162/70 H 03/17/22 09:44 Pulse Oximetry 97 03/17/22 09:44 Oxygen Delivery Method 03/17/22 09:44 <Chantale Baltazar DO - Last Filed: 03/21/22 00:10> Initial Vital Signs Initial Vital Signs: Vital Signs Temperature 97.8 F 03/17/22 09:44 Pulse Rate 70 03/17/22 09:44 Respiratory Rate 15 03/17/22 09:44 Blood Pressure 162/70 H 03/17/22 09:44 Pulse Oximetry 97 03/17/22 09:44 Oxygen Delivery Method 03/17/22 09:44 Course <Jose Lao PA-C - Last Filed: 03/17/22 12:30> Vital Signs Vital signs: Vital Signs - 8 hr 03/17/22 09:44 Temperature 97.8 F Pulse Rate 70 Respiratory Rate 15 Blood Pressure 162/70 H Pulse Oximetry 97 Oxygen Delivery Method Room Air <Chantale Baltazar DO - Last Filed: 03/21/22 00:10> Vital Signs Vital signs: Vital Signs - 8 hr 03/17/22 09:44 Temperature 97.8 F Pulse Rate 70 Respiratory Rate 15 Blood Pressure 162/70 H Pulse Oximetry 97 Oxygen Delivery Method Room Air MDM - Skin/Abscess/Foreign Bdy <Jose Lao PA-C - Last Filed: 03/17/22 12:30> MDM Narrative Medical decision making narrative: This is a 81-year-old female presents emergency department due to a suspected corn to the bottom of her foot. Patient does describe some spreading erythema and will cover with oral antibiotics to avoid any kind of worsening bacterial infection. Recommended patient follow-up with the airline customer service agent in a couple of weeks. She already has an established airline customer service agent as she is planning to go to. No evidence of any kind of necrotic infection. low concern for osteomyelitis at this time. Discharge Plan Departure Patient Disposition: Home Clinical Impression: Anna of foot Activity Restrictions/Additional Instructions: Thank you for coming to the [facility] Emergency Department today. As we discussed I suspect that you have a ?corn? to the bottom of the foot. Please take these antibiotics as prescribed to avoid any kind of bacterial infection as he did describe having some symptoms concerning for this. I recommended follow- up with the airline customer service agent that you are planning to see in a couple of weeks. You may use warm soaks to help with the pain. May also use open toe shoes to avoid any foot discomfort. Ibuprofen and Tylenol will also help with the pain. I hope you feel better soon. Prescriptions: New cephalexin 500 mg capsule 500 mg PO QID 5 Days Qty: 20 0RF No Action hydrochlorothiazide 12.5 mg tablet 12.5 mg PO DAILY Qty: 90 3RF hydrocodone-acetaminophen 5-325 mg tablet 1 tab PO Q6H PRN (Reason: pain) Qty: 10 0RF Referrals: Fito Abrams MD [Primary Care Provider] - Stand Alone Forms: Patient Portal/API <Chantale Baltazar DO - Last Filed: 03/21/22 00:10> Cosign ED Attending Laurelature Attestation: I was immediately available in the department for consultation. Documentation has been reviewed.
[2022-03-17 13:01] VITALS: PULSE 67; RESP 18; O2SAT 97
== END 2022-03-17 13:01 | disposition home or self-care (01) ==
PROVIDERS: Emergency Provider Physician Assistant Medical; PCP Internal Medicine
DX: L84 Corns and callosities (principal)
CPT/HCPCS: 99281

== ENCOUNTER 2022-04-19 09:36 | Day surgery (SDC) | payer MEDICARE, SELFPAY ==
--- NOTE | 2022-04-19 | PATH_ITS ---
[facility] Accession Number: [id number] No. of containers..01 Tissue . 01 Material submitted: . sigmoid colon - SIGMOID . 01 Diagnosis: Sigmoid Colon, Biopsy: Tubular adenoma. MRV 04/25/2022 1339 Local . 01 Electronically signed: . La Bah MD, Pathologist NPI- [id number] . 01 Gross description: . SIGMOID: Received in formalin are multiple fragment(s) of valera, soft tissue measuring 0.7 x 0.4 x 0.1 cm in aggregate submitted entirely in 1 cassette(s) /CPE 04/20/2022 0845 Local . 01 Pathologist provided ICD-10: D12.5 . 01 CPT . 825677 Specimen Comment: A courtesy copy of this report has been sent to [phone] Performed at: 01 [facility] [address] [place] [address], [place], [place] [id number] MD Zander Hong MD Phone: [phone]
[2022-04-19] MEDS: FLEETS ENEMA 1 EACH PR (09:49)
--- NOTE | 2022-04-19 09:50 | SUR.PREOP ---
Pt states stool is tea colored. Pt doing enema now.
[2022-04-19 10:00] VITALS: BP 136/83; PULSE 78; RESP 16; TEMP 36.5; O2SAT 99; BMI 19.6
[2022-04-19] MEDS: LACTATED RINGERS 1,000 ML 200 ML IV (10:13)
--- NOTE | 2022-04-19 11:07 | P.HP_ITS ---
History of Present Illness History of Present Illness Date Patient Seen: 04/19/22 Time Patient Seen: 11:07 Chief complaint: SCREENING COLONOSCOPY Narrative: The patient presents for colorectal screening. She is a history of colonic polyps last colonoscopy was 3 years ago. No personal or family history of colon cancer. On further history denies any recent gastrointestinal symptoms. No nausea, vomiting, abdominal pain, loss of appetite, unexplained weight loss, change in bowel habits, or blood per rectum. Patient History Medical History Ankle fracture Chicken pox Chronic back pain Endometriosis (~1959) Essential hypertension (~1976) Foot pain H/O adenomatous polyp of colon (~2009) Measles Osteoarthritis Ovarian cyst (~1962) Painful menstrual periods (~1952) Peripheral neuropathy (~2003) Personal history of breast cancer (~2003) PVCs (premature ventricular contractions) Rubella Surgical History Anesthesia S/P bilateral foot surgery (~1999) S/P carpal tunnel release S/P hip replacement (~2014) S/P inguinal hernia repair S/P lumpectomy, left breast (~2003) S/P shoulder surgery (~1991) S/P total knee arthroplasty (~2018) Family & Social History Family History Father Lung cancer Hypertension Parkinson disease Mother Uterine cancer Brother Autoimmune deficiency syndrome Grandfather History of heart disease Grandmother No problems noted. Social History: household members none Tobacco & Substance use: Smoking Status Never smoker alcohol intake current alcohol intake frequency a few times a week Substance Use Type does not use Meds Home Medications and Allergies Home Medications Medication Instructions Recorded Confirmed Type hydrochlorothiazide 12.5 mg tablet 12.5 mg PO DAILY #90 tabs 12/24/21 04/19/22 Rx hydrocodone 5 mg-acetaminophen 325 1 tab PO Q6H PRN pain #10 tabs 01/21/22 04/19/22 Rx mg tablet Allergies Allergy/AdvReac Type Severity Reaction Status Date / Time paclitaxel Allergy Severe Anaphylaxis Verified 04/19/22 09:58 Penicillins Allergy Intermediate Hives Verified 04/19/22 09:58 Exam Vital Signs (past 8 hours): - 04/19/22 10:00 Temperature 97.7 F Pulse Rate 78 Respiratory Rate 16 Blood Pressure 136/83 Pulse Oximetry 99 Oxygen Delivery Method Room Air Oxygen Delivery Method Room Air Narrative Exam Narrative: General adult woman alert oriented no acute distress Assessment & Plan Assessment and plan (1) Personal history of colonic polyps: Status: Acute Assessment & Plan narrative: The patient requires colorectal screening and colonoscopy is recommended. Technical details were discussed. Risks, benefits, alternatives explained. Risks including but not limited to myocardial infarction, aspiration, bleeding, pain, missed lesion, incomplete examination, need for further radiographic studies, colonic perforation, and need for major abdominal surgery were discus sed. All questions were answered to their satisfaction, and they are in agreement with this plan. Time Spent With Patient Critical Care time: I spent a total of [] minutes of critical care time on this patient's care today; this time is exclusive of procedural time.
--- NOTE | 2022-04-19 11:08 | P.OP.COLON_ITS ---
Operative Date/Time/Diagnoses Date of procedure: 04/19/22 Time of procedure: 11:08 Pre-op diagnosis: Personal history colonic polyps Colorectal screening Post-op diagnosis: same Procedure & Clinicians Study performed: Colonoscopy Same procedure as scheduled: Yes Indications: Colorectal screening Personal history of colon polyps Surgeon: Mike Freedman Procedure Notes Procedure in detail: The history and physical was performed/updated and the patient is ASA class is 2. The procedure was discussed in detail with the patient. Potential risks complications including infection, bleeding, missed diagnosis, perforation, need for surgery, and were explained. Their questions were answered and informed consent was obtained. Patient was brought to the procedure room and placed standard monitoring equipment. The patient's vital signs were monitored continuously throughout the entire procedure. Prior to starting time-out was performed. The patient was placed in the left lateral recumbent position. Procedural sedation was adm inistered by anesthesia. Examination began with a thorough inspection of the perianal area there was no evidence of fissures, fistulae, external hemorrhoids or cutaneous malignancy. The colonoscopy scope was then placed into the anal canal and was advanced to the cecum, which was identified by the ileocecal valve, the appendiceal orifice and the confluence of the taenia. The scope was then slowly withdrawn examining colon thoroughly in all directions, irrigating it of any residual stool. FINDINGS 1. Sigmoid colon. Ttwo 5 mm polyps removed with biopsy forceps 2. Diverticulosis within the left colon mild The patient tolerated the procedure well. They will be discharged once criteria are met. The prep was of good/excellent quality. The withdrawl time was 11 minutes. Specimen(s): other (Sigmoid colon polyps) Complications: none Impression: Colonic polyps Post-procedure Recommendations: High fiber diet Plan for aftercare: Follow-up is dependent on pathology findings Disposition: same day surgery
[2022-04-19 11:45] VITALS: BP 101/54; PULSE 60; RESP 15; TEMP 36.1; O2SAT 97
[2022-04-19 11:50] VITALS: BP 104/60; PULSE 56; RESP 24; O2SAT 98
[2022-04-19 11:54] VITALS: BP 104/67; PULSE 74; RESP 20; O2SAT 99
--- NOTE | 2022-04-19 12:03 | SUR.PHASEII ---
1203: Pt A&Ox4, denies any distress, abd soft, and ready to discharge home. Discharge instructions reviewed with pt with time allowed for questions. Pt left unit stable with all personal belonging via w/c to ER entrance where family will transport pt home.
== END 2022-04-19 12:14 | disposition home or self-care (01) ==
PROVIDERS: PCP Internal Medicine; Referring Provider Surgery; Visit Provider Surgery
PROC: 0DJD8ZZ Inspection of Lower Intestinal Tract, Via Natural or Artificial Opening Endoscopic (ICD-10-PCS; CPT 45378; principal; 2022-04-19 10:45)
DX: Z12.11 Encounter for screening for malignant neoplasm of colon (principal); Z86.010 Personal history of colon polyps; K57.30 Diverticulosis of large intestine without perforation or abscess without bleeding; D12.5 Benign neoplasm of sigmoid colon
CPT/HCPCS: 45380; J2704

== ENCOUNTER → 2022-06-13 09:08 | Outpatient (CLI) | payer MEDICARE, SELFPAY ==
--- NOTE | 2022-06-13 | DI.MG.S_ITS ---
BILATERAL DIGITAL SCREENING MAMMOGRAM 3D/2D WITH CAD POST LUMPECTOMY: 06/13/2022 CLINICAL: Routine screening. Personal history of left breast cancer. Comparison is made to exams dated: 03/18/2020 mammogram, 05/10/2019 mammogram, and 03/26/2018 mammogram - out side. Both breasts are heterogeneously dense, which may obscure small masses (category c / 51-75% glandular tissue). Current study was also evaluated with a Computer Aided Detection (CAD) system. Both breasts have post-operative findings. There are possible new grouped calcifications in the right breast posterior depth lateral region best seen on the craniocaudal view. No other significant masses, calcifications, or other findings are seen in either breast. IMPRESSION: INCOMPLETE: NEEDS ADDITIONAL IMAGING EVALUATION The possible new grouped calcifications in the right breast are indeterminate, posterior depth CC view lateral region. Additional views with possible ultrasound are recommended. This exam was interpreted at Station ID: [id number]. NOTE: For mammograms, a report in lay terms will be sent to the patient. Approximately 15% of breast malignancies will not be visualized mammographically. In the management of a palpable breast mass, a negative mammogram must not discourage biopsy of a clinically suspicious lesion. Electronically Signed By: Anthony Renee M.D. lc/:06/13/2022 09:51:37 letter sent: Additional Imaging Needed ACR BI-RADS Category 0: Incomplete [id number]
== END ==
PROVIDERS: PCP Internal Medicine; Referring Provider Internal Medicine; Visit Provider Internal Medicine
DX: Z12.31 Encounter for screening mammogram for malignant neoplasm of breast (principal)
CPT/HCPCS: 77063; 77067

== ENCOUNTER → 2022-06-29 09:32 | Outpatient (CLI) | payer MEDICARE, SELFPAY ==
--- NOTE | 2022-06-29 | DI.MG.S_ITS ---
UNILATERAL RIGHT DIGITAL DIAGNOSTIC MAMMOGRAM 3D/2D WITH ADDITIONAL VIEWS: 06/29/2022 CLINICAL: Additional evaluation requested from prior study. Comparison is made to exams dated: 06/13/2022 mammogram, 06/10/2021 mammogram - [facility], and 03/18/2020 mammogram - out side. The right breast is heterogeneously dense, which may obscure small masses (category c / 51-75% glandular tissue). The right breast has post-operative findings. The grouped calcifications in the right breast posterior depth lateral region seen on the screening craniocaudal view only are not seen in additional views. No other significant masses or calcifications are seen in the breast. IMPRESSION: BENIGN There is no mammographic evidence of malignancy. Return to annual mammogram screening schedule is recommended. This exam was interpreted at Station ID: [id number]. NOTE: For mammograms, a report in lay terms will be sent to the patient. Approximately 15% of breast malignancies will not be visualized mammographically. In the management of a palpable breast mass, a negative mammogram must not discourage biopsy of a clinically suspicious lesion. Electronically Signed By: Gladys Magallanes M.D. lk/:06/29/2022 09:54:00 copy to: [facility], [facility] letter sent: Normal Exam ACR BI-RADS Category 2: Benign Finding(s) 3342F
== END ==
PROVIDERS: PCP Internal Medicine; Referring Provider Internal Medicine; Visit Provider Internal Medicine
DX: R92.8 Other abnormal and inconclusive findings on diagnostic imaging of breast (principal)
CPT/HCPCS: 77065; G0279

== ENCOUNTER → 2023-01-25 13:05 | Outpatient (CLI) | payer MEDICARE, SELFPAY ==
[2023-01-25 14:09] LABS: C-Reactive Protein Quant < 0.5 mg/dL (<1.0)
[2023-01-25 14:26] LABS: Erythrocyte Sedimentation Rate 9 MM/HR (0-20)
== END ==
PROVIDERS: PCP Internal Medicine; Referring Provider Physician Assistant; Visit Provider Physician Assistant
DX: Z96.652 Presence of left artificial knee joint (principal); M25.562 Pain in left knee
CPT/HCPCS: 36415; 85651; 86140

== ENCOUNTER → 2023-06-28 10:38 | Outpatient (CLI) | payer MEDICARE, SELFPAY ==
--- NOTE | 2023-06-28 10:39 | DI.RAD.S_ITS ---
Bone Density Report Name: TYSON GR Age: 82 Sex: Female Ethnicity: White Date of : 1940 Indication: postmenopausal; screening for osteoporosis; prior fracture; Referring Provider: UNSPECIFIED Study: Bone densitometry was performed. Exam Date: June 28, 2023 Accession number: [id number] Bone Density: Region BMD T-score Z-score Classification AP Spine(L1-L4) 0.844 -1.8 1.0 Osteopenia Femoral Neck (Left) 0.678 -1.5 0.9 Osteopenia Total Hip (Left) 0.713 -1.9 0.4 Osteopenia Total Forearm (Left) 0.402 -3.3 0.2 Osteoporosis 1/3 Forearm (Left) 0.510 -3.1 0.5 Osteoporosis UD Forearm (Left) 0.290 -2.6 -0.1 Osteoporosis World Health Organization criteria for BMD impression classify patients as: Normal (T-score at or above -1.0), Osteopenia (T-score between -1.0 and -2.5), or Osteoporosis (T-score at or below -2.5). 10-year Fracture Risk: FRAX not reported because: Prior hip or vertebral fracture Impression: The patient has low bone mass, based on the Left Total Hip T-score. The patient has risk factors, including: previous fracture. Discussion: INCREASED RISK OF FRACTURE DUE TO HISTORY OF FRACTURE. The patient's previous fracture puts the patient at high risk of a future fracture. In untreated patients, the risk of osteoporotic fracture increases approximately two-fold for each 1.0 SD decrease in T-score. Low bone density is not the only risk factor for fracture; also consider factors such as patient's age, frailty or poor health, risk of falling, risk of injury, previous osteoporotic fracture, family history of osteoporosis, cigarette smoking, low body weight, etc. Not everyone with a low trauma fracture has osteoporosis; osteomalacia and other metabolic bone disorders should also be considered. Patients who have osteoporosis should be evaluated for specific diseases and conditions (secondary causes) that may cause or contribute to bone loss and fracture risk. National Osteoporosis Foundation (NOF) recommends pharmacologic intervention for patients with a prior hip or vertebral fracture regardless of BMD T-score. The patient should follow a healthful lifestyle (good nutrition with adequate calcium and vitamin D, and appropriate weight-bearing exercise). Follow-Up: Consider a repeat BMD and Vertebral Fracture Assessment (VFA) exam in 2 years or sooner if medically necessary, to reassess this patient's status. Reported by: MORTEZA SAINI M.D. on 06/28/2023 11:06:00 AM.
== END ==
LOC: RAD 10:39
PROVIDERS: PCP Internal Medicine; Referring Provider Student in an Organized Health Care Education/Training Program; Visit Provider Student in an Organized Health Care Education/Training Program
DX: M85.89 Other specified disorders of bone density and structure, multiple sites (principal)
CPT/HCPCS: 77080

== ENCOUNTER → 2023-08-08 08:21 | Outpatient (CLI) | payer MEDICARE, SELFPAY ==
--- NOTE | 2023-08-08 08:22 | DI.MG.S_ITS ---
BILATERAL DIGITAL SCREENING MAMMOGRAM 3D/2D WITH CAD POST LUMPECTOMY: 08/08/2023 CLINICAL: Routine screening, Breast cancer. Comparison is made to exams dated: 06/29/2022 mammogram, 06/13/2022 mammogram, 06/10/2021 mammogram - [facility], and 05/10/2019 mammogram - out side. Both breasts are heterogeneously dense, which may obscure small masses (category c / 51-75% glandular tissue). Current study was also evaluated with a Computer Aided Detection (CAD) system. There are benign post operative findings in the left breast. No significant masses, calcifications, or other findings are seen in either breast. There has been no significant interval change. IMPRESSION: BENIGN There is no mammographic evidence of malignancy. A 1 year screening mammogram is recommended. This exam was interpreted at Station ID: [id number]. NOTE: For mammograms, a report in lay terms will be sent to the patient. Approximately 15% of breast malignancies will not be visualized mammographically. In the management of a palpable breast mass, a negative mammogram must not discourage biopsy of a clinically suspicious lesion. Electronically Signed By: Ranjit white/maryann:08/08/2023 12:51:05 copy to: [facility], [facility] letter sent: Normal Exam ACR BI-RADS Category 2: Benign Finding(s) 3342F
== END ==
LOC: MAMMO 08:22
PROVIDERS: PCP Internal Medicine; Referring Provider Internal Medicine; Visit Provider Internal Medicine
DX: Z12.31 Encounter for screening mammogram for malignant neoplasm of breast (principal); Z85.3 Personal history of malignant neoplasm of breast; R92.333 Mammographic heterogeneous density, bilateral breasts
CPT/HCPCS: 77063; 77067

== ENCOUNTER → 2024-01-01 14:57 | Outpatient (CLI) | payer MEDICARE, SELFPAY ==
--- NOTE | 2024-01-01 14:59 | DI.RAD.S_ITS ---
PROCEDURE: XR SHOULDER LT MIN 2V INDICATIONS: left shoulder pain TECHNIQUE: 3 views of the shoulder were acquired. COMPARISON: None. FINDINGS: Bones: There are no focal osseous abnormalities. Superior subluxation of the humeral head is typically seen with chronic rotator cuff tear/impingement Acromioclavicular and glenohumeral joints: Severe acromioclavicular and mild glenohumeral degenerative change noted. The humeral head is superiorly subluxed suggesting chronic rotator cuff tear/impingement. Glenohumeral degenerative change noted. Soft tissues: Scattered soft tissue calcifications seen in the medial upper humerus region IMPRESSION: Superior humeral head head subluxation suggesting chronic rotator cuff tear/impingement. Degeneration Dictated by: Fito Escamilla M.D. on 01/02/2024 at 10:41 Approved by: Fito Escamilla M.D. on 01/02/2024 at 10:43
--- NOTE | 2024-01-01 14:59 | DI.RAD.S_ITS ---
PROCEDURE: XR RIBS LT MIN 3V W CXR1V INDICATIONS: left rib pain TECHNIQUE: Three views of the ribs were acquired, along with a single view chest. COMPARISON: None. FINDINGS: Heart, mediastinum and pulmonary vascular: Heart is normal in size and configuration. Mediastinum is unremarkable. Pulmonary vascular is normal. Lungs: Clear Pleural spaces: Normal-no effusions or pneumothorax. Bones and soft tissues: Acute mm displaced fracture lateral left 4th and possibly 3rd ribs appreciated. There are axillary clips in the left region. Superior subluxation humeral head suggests chronic rotator cuff tear/impingement. IMPRESSION: Acute left 4th and possibly left 3rd rib fractures Dictated by: Fito Escamilla M.D. on 01/02/2024 at 10:54 Approved by: Fito Escamilla M.D. on 01/02/2024 at 10:56
== END ==
PROVIDERS: PCP Internal Medicine; Referring Provider Internal Medicine; Visit Provider Internal Medicine
DX: S22.32XA Fracture of one rib, left side, initial encounter for closed fracture (principal); S43.002A Unspecified subluxation of left shoulder joint, initial encounter; R07.81 Pleurodynia; M85.80 Other specified disorders of bone density and structure, unspecified site; M25.519 Pain in unspecified shoulder
CPT/HCPCS: 71101; 73030

== ENCOUNTER → 2024-01-08 08:22 | Outpatient (CLI) | payer MEDICARE, SELFPAY ==
[2024-01-08 09:51] LABS: Add Manual Diff / Slide Review NO; Basophils Absolute Auto 0 /uL (0-100); Basophils Percent Auto 0.6 % (0-2); Eosinophils Absolute Auto 100 /uL (0-450); Eosinophils Percent Auto 3.1 % (2-4); Hemoglobin 13.1 g/dL (12.0-16.0); Lymphocytes Absolute Auto 1400 /uL (1100-4500); Lymphocytes Percent Auto 40.8 % (25-40); Mean Corpuscular HGB Conc 33.6 % (30-36); Mean Corpuscular Hemoglobin 31.3 PG (26-34); Mean Corpuscular Volume 93.1 fL (80-100); Monocytes Absolute Auto 400 /uL (0-900); Monocytes Percent Auto 10.7 % (3-14); Neutrophils Absolute Auto 1600 /uL (1500-7000); Neutrophils Percent Auto 44.8 % (50-75); Platelet Count 226 X10^3/uL (150-400); Red Blood Cell Count 4.19 X10^6/uL (4.0-5.2); Red Cell Distribution Width 12.8 % (11.6-14.8); White Blood Cell Count 3.5 X10^3/uL (4.5-11.0)
[2024-01-08 10:20] LABS: Alanine Aminotransferase 17 IU/L (<35); Albumin 4.1 g/dL (3.5-5.0); Albumin Globulin Ratio 1.6 (1.0-2.8); Alkaline Phosphatase 97 U/L (38-126); Aspartate Aminotransferase 29 IU/L (14-36); BUN Creatinine Ratio 26.6 (6-22); Bilirubin Total 0.8 mg/dL (0.2-1.3); Blood Urea Nitrogen 17 mg/dL (7-17); Calcium 9.5 mg/dL (8.4-10.2); Carbon Dioxide 27 mmol/L (22-32); Chloride 104 mmol/L (98-107); Cholesterol 220 mg/dL (140-199); Estimated Glomerular Filt Rate > 60 mL/min (>60); Globulin 2.6 g/dL (1.7-4.1); Glucose 86 mg/dL (80-110); HDL Cholesterol 76 mg/dL (40-60); HEMOLYSIS < 15 (0-50); LDL Cholesterol Calculated 130 mg/dL (<100); Potassium 4.2 mmol/L (3.4-5.1); Sodium 137 mmol/L (137-145); Total Protein 6.7 g/dL (6.3-8.2); Triglycerides 71 mg/dL (35-150)
[2024-01-08 10:40] LABS: TSH w/ Reflex to FT4 1.92 uIU/mL (0.47-4.68)
== END ==
PROVIDERS: PCP Internal Medicine; Referring Provider Internal Medicine; Visit Provider Internal Medicine
DX: I10 Essential (primary) hypertension (principal); E03.9 Hypothyroidism, unspecified; D64.9 Anemia, unspecified; E78.5 Hyperlipidemia, unspecified
CPT/HCPCS: 36415; 80053; 80061; 84443; 85025

== ENCOUNTER → 2024-02-19 12:06 | Outpatient (CLI) | payer MEDICARE, SELFPAY ==
--- NOTE | 2024-02-19 12:09 | DI.US.S_ITS ---
LIMITED ULTRASOUND OF LEFT BREAST: 02/19/2024 CLINICAL: Palpable left breast lump post fall 4-6 weeks ago. Comparison is made to exams dated: 02/19/2024 mammogram, 08/08/2023 mammogram, 06/29/2022 mammogram, and 06/13/2022 mammogram - [facility]. Real-time ultrasound of the left breast 1 o'clock region was performed. Ochoa scale images of the real-time examination were reviewed. No sonographic abnormality is seen in the area of clinical concern in left breast at 1 o'clock, 5 cm from the nipple. IMPRESSION: NEGATIVE No sonographic abnormality in the area of clinical concern. No mammographic or sonographic evidence of malignancy. Return to annual mammogram screening schedule is recommended (due July 2024). Clinical follow-up is also recommended, and further management of palpable abnormalities or other focal signs or symptoms should be based on the results of clinical evaluation. If palpable abnormality or other concerning symptom persists or progresses, further clinical evaluation should be considered. Findings and recommendations were conveyed to the patient during today's evaluation. This exam was interpreted at Station ID: [id number]. Electronically Signed By: Denise Sifuentes M.D., Ph.D. eb/:02/19/2024 13:30:09 copy to: [facility], [facility] letter sent: Clinical Evaluation ACR BI-RADS Category 1: Negative
--- NOTE | 2024-02-19 12:09 | DI.MG.S_ITS ---
UNILATERAL LEFT DIGITAL DIAGNOSTIC MAMMOGRAM 3D/2D: 02/19/2024 CLINICAL: Breast mass and swelling. Comparison is made to exams dated: 08/08/2023 mammogram, 06/29/2022 mammogram, 06/13/2022 mammogram, 06/10/2021 mammogram - [facility], and 03/18/2020 mammogram - out side. The breasts are heterogeneously dense, which may obscure small masses (category c / 51-75% glandular tissue). There are stable post operative findings in the left breast. A BB marker was placed in the area of clinical concern, and no mammographic abnormality is identified. No significant masses, calcifications, or other findings are seen in the breast. IMPRESSION: INCOMPLETE: NEED ADDITIONAL IMAGING EVALUATION No mammographic abnormality in the area of clinical concern. Recommend further evaluation with targeted breast ultrasound, which will immediately follow this exam. This exam was interpreted at Station ID: [id number]. NOTE: For mammograms, a report in lay terms will be sent to the patient. Approximately 15% of breast malignancies will not be visualized mammographically. In the management of a palpable breast mass, a negative mammogram must not discourage biopsy of a clinically suspicious lesion. Electronically Signed By: Denise Sifuentes M.D., Ph.D. eb/:02/19/2024 13:20:47 copy to: [facility], [facility] letter sent: Additional Imaging Needed ACR BI-RADS Category 0: Incomplete: Need Additional Imaging Evaluation
== END ==
PROVIDERS: PCP Internal Medicine
DX: R92.2 Inconclusive mammogram (principal); C50.012 Malignant neoplasm of nipple and areola, left female breast; N63.21 Unspecified lump in the left breast, upper outer quadrant; R92.333 Mammographic heterogeneous density, bilateral breasts; I89.0 Lymphedema, not elsewhere classified; Z17.0 Estrogen receptor positive status [ER+]
CPT/HCPCS: 76642; 77065; G0279

== ENCOUNTER → 2024-04-01 07:08 | Outpatient (CLI) | payer MEDICARE, SELFPAY ==
--- NOTE | 2024-04-01 07:37 | DI.MRI.S_ITS ---
PROCEDURE: MR SHOULDER LT WO CON INDICATIONS: ROTATOR CUFF TEAR TECHNIQUE: Noncontrast oblique coronal T2 fast spin echo with fat saturation, oblique sagittal T1 spin echo and T2 fast spin echo with fat saturation, axial T1 spin echo and T2 fast spin echo with fat saturation through the shoulder. COMPARISON: [facility], CR, XR SHOULDER LT MIN 2V, 01/01/2024, 15:07. FINDINGS: Image quality: Diagnostic Rotator cuff: Bulk: There is significant atrophy of the supraspinatus, and infraspinatus. [id number] subscapularis and teres minor atrophy also present. Teres minor: Mild tendinopathy Supraspinatus: Full-thickness tear with tendinous retraction to the level of the distal clavicle. Infraspinatus: Full-thickness tear with complete tendinous retraction to the level of the distal clavicle Subscapularis: Moderate tendinopathy and thickening. Partial-thickness articular sided tear in the muscle tendon junction Bones and bursae: GH joint: Moderate to large joint effusion. Moderate degenerative changes AC joint: Moderate to severe degenerative changes Humeral head: No acute fracture Scapula and acromion: No acute fracture. Periarticular edema, also involving the distal clavicle around the acromioclavicular joint, likely degenerative. Bursa: Glenohumeral effusion extends to the bursa. Partial deltoid tendinous tear also seen. Capsule: Labrum: Circumferential degeneration Long head biceps tendon: Probably torn, not well seen IGHL: Periligamentous edema Rotator interval: Edema is seen throughout the rotator interval Soft tissues: Mild edema throughout the muscle bellies of the rotator cuff. 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 Atrophy is seen in the rotator cuff muscle bellies as well as mild edema. Moderate to large joint effusion with evidence of synovitis, fluid extends to the bursa. Moderate to severe acromioclavicular degenerative changes with periarticular osseous edema. Partial deltoid tendinous tear. Long head biceps tendon also not well seen likely torn. Circumferential labral degeneration. Dictated by: Anthony Renee M.D. on 04/01/2024 at 10:57 Approved by: Anthony Renee M.D. on 04/01/2024 at 11:03
== END ==
PROVIDERS: PCP Internal Medicine; Referring Provider Orthopaedic Surgery; Visit Provider Orthopaedic Surgery
DX: M75.102 Unspecified rotator cuff tear or rupture of left shoulder, not specified as traumatic (principal); S46.812A Strain of other muscles, fascia and tendons at shoulder and upper arm level, left arm, initial encounter; M75.122 Complete rotator cuff tear or rupture of left shoulder, not specified as traumatic; M25.412 Effusion, left shoulder
CPT/HCPCS: 73221

== ENCOUNTER 2025-01-18 09:48 | Emergency (ER) | payer MEDICARE, SELFPAY ==
[2025-01-18 09:56] VITALS: BP 175/79; PULSE 71; O2SAT 97
[2025-01-18 09:58] VITALS: BP 175/79; PULSE 66; RESP 16; TEMP 36.6; O2SAT 98; BMI 19.9
[2025-01-18 10:00] VITALS: BP 165/69; PULSE 89; O2SAT 92
--- NOTE | 2025-01-18 10:02 | DI.RAD.S_ITS ---
PROCEDURE: XR FOOT LT 2V INDICATIONS: L foot pain TECHNIQUE: 3 views of the foot were acquired. COMPARISON: None. FINDINGS: Bones: No fractures or dislocations. No suspicious bony lesions. Generalized decreased osseous mineralization noted. Moderate calcaneal spur. Intertarsal hindfoot arthritic changes. No soft tissue swelling. Soft tissues: No tibiotalar joint effusion. Achilles tendon appears normal. IMPRESSION: No acute bony abnormality. Osteopenia, degenerative arthritic changes, moderate calcaneal spur Approved by: Carlos Sterling M.D. on 01/18/2025 at 9:44
[2025-01-18 10:30] VITALS: BP 144/71; PULSE 60; O2SAT 97
--- NOTE | 2025-01-18 10:42 | ED_ITS ---
HPI - Extremity Injury (Lower) General Chief Complaint: Extremity Injury, Lower Stated Complaint: Foot pain/possible fracture Time Seen by Provider: 01/18/25 10:10 Source: patient Mode of arrival: Ambulatory History of Present Illness HPI Narrative: Patient is a 84-year-old female former runner now walks often in regularly presents today with left foot pain. She has had reconstructive surgery on her foot he has a machine veneer repairer regularly has noticed some redness and pain on her foot for the last 10 days. The redness she feels like it is spreading a little bit. She denies any fever or chills. She has had stress fractures before she feels like it might be a stress fracture there is a pinpoint spots that hurt but they are in a couple of spots. She is able to ambulate and bear weight Related Data Previous Rx's ?Medication ?Instructions ?Recorded Post-Surgical Compression Bra #4 ea 08/22/23 hydrochlorothiazide 12.5 mg tablet 12.5 mg PO DAILY #9 0 tabs 12/12/24 doxycycline hyclate 100 mg capsule 100 mg PO BID #14 c aps 01/18/25 Allergies Allergy/AdvReac Type Severity Reaction Status Date / Time paclitaxel Allergy Severe Anaphylaxis Verified 01/18/25 09:58 Penicillins Allergy Intermediate Hives Verified 01/18/25 09:58 Patient History Medical History Osteopenia PVCs (premature ventricular contractions) Osteoarthritis Ankle fracture Foot pain Chronic back pain Rubella Measles Chicken pox Painful menstrual periods (~195) Peripheral neuropathy (~2003) Ovarian cyst (~1962) Endometriosis (~1959) H/O adenomatous polyp of colon (~2009) Essential hypertension (~1976) Personal history of breast cancer (~2003) Surgical History Anesthesia S/P bilateral foot surgery (~1999) S/P shoulder surgery (~1991) S/P inguinal hernia repair S/P lumpectomy, left breast (~2003) S/P hip replacement (~2014) S/P total knee arthroplasty (~2018) S/P carpal tunnel release Family History Father Lung cancer Hypertension Parkinson disease Mother Uterine cancer Brother Autoimmune deficiency syndrome Grandfather History of heart disease Grandmother No problems noted. Social History household members: none Smoking Status: Never smoker alcohol intake: current Smoking Status: Never smoker alcohol intake frequency: a few times a week Exam Initial Vital Signs Initial Vital Signs: Vital Signs Pulse Rate 71 01/18/25 09:56 Blood Pressure 175/79 H 01/18/25 09:56 Pulse Oximetry 97 01/18/25 09:56 GENERAL: Well-appearing, well-nourished and in no acute distress. CARDIOVASCULAR: peripheral pulses in tact, cap refill <2 sec RESPIRATORY: No respiratory distress, speaks in full sentences without difficulty EXTREMITIES: Normal range of motion, no clubbing or edema. Neurovascularly intact Left foot to be slightly swollen slightly erythematous the dorsal side there is some erythema extending laterally it is not streaking up the leg. Scars are noted distal pedal pulses felt. Tender pinpoint areas NEUROLOGICAL: Cranial nerves II through XII grossly intact. Normal gait and speech. SKIN: Warm, dry, no petechiae, no rashes or lesions. Course Orders Ordered: ED Orders 01/18/25 10:02 XR foot LT 2V Stat Vital Signs Vital signs: Vital Signs - 8 hr 01/18/25 09:56 01/18/25 09:56 01/18/25 09:58 Temperature 97.8 F Pulse Rate 71 66 Respiratory Rate 16 Blood Pressure 175/79 H 175/79 H Pulse Oximetry 97 98 Oxygen Delivery Method Room Air 01/18/25 10:00 01/18/25 10:00 01/18/25 10:30 Temperature Pulse Rate 89 60 Respiratory Rate Blood Pressure 165/69 H Pulse Oximetry 92 97 Oxygen Delivery Method 01/18/25 10:30 01/18/25 11:00 01/18/25 11:01 Temperature Pulse Rate 53 L Respiratory Rate Blood Pressure 144/71 H 184/78 H Pulse Oximetry 99 Oxygen Delivery Method 01/18/25 11:01 Temperature Pulse Rate 55 L Respiratory Rate Blood Pressure Pulse Oximetry 99 Oxygen Delivery Method MDM - Extremity Injury (Lower) Imaging Data Extremity x-ray #1: Radiologist's Impression: PROCEDURE: XR FOOT LT 2V INDICATIONS: L foot pain TECHNIQUE: 3 views of the foot were acquired. COMPARISON: None. FINDINGS: Bones: No fractures or dislocations. No suspicious bony lesions. Generalized decreased osseous mineralization noted. Moderate calcaneal spur. Intertarsal hindfoot arthritic changes. No soft tissue swelling. Soft tissues: No tibiotalar joint effusion. Achilles tendon appears normal. IMPRESSION: No acute bony abnormality. Osteopenia, degenerative arthritic changes, moderate calcaneal spur Approved by: Carlos Sterling M.D. on 01/18/2025 at 9:44 MDM Narrative Medical decision making narrative: Patient 84-year-old female with a ongoing foot pain. She does have some mild erythema mild swelling but no fever. Possible cellulitis. X-ray is negative for acute fracture but osteopenia is noted. Shared decision making with patient in regards to antibiotics or not. At this time seems reasonable to try some antibiotics. Also discussed with her advanced imaging as an outpatient if pain persists. We will go ahead and give her an orthopedic shoe for support. Discharge Plan Departure Patient Disposition: Home Clinical Impression: Cellulitis of foot, left Instructions: DI for Cellulitis -- Adult, DI for Stress Fracture Activity Restrictions/Additional Instructions: *You have been diagnosed with cellulitis *What to do: At this time were orthopedic shoe. Hopefully antibiotics help in the redness and swelling get better for you. If not I would definitely talk she your machine veneer repairer and/or pulley man in regards to an MRI or CT scan. I would wear supportive shoe in the orthopedic shoe *Continue to take medications as directed Doxycycline 100 mg twice a day for 7 days *Follow up with your primary care provider in 2-3 days or call [phone] *Return to ER if you should have increasing redness pain swelling inability to ambulate or any new, worsening or concerning symptoms Prescriptions: New doxycycline hyclate 100 mg capsule 100 mg PO BID Qty: 14 0RF No Action (DME) Post-Surgical Compression Bra See Rx Instructions .Route .MEDSUPPLY Qty: 4 0RF Rx Instructions: Four compression bras hydrochlorothiazide 12.5 mg tablet 12.5 mg PO DAILY Qty: 90 1RF Referrals: Fito Abrams MD [Primary Care Provider, Internal Medicine] Stand Alone Forms: Patient Portal/API
[2025-01-18 11:00] VITALS: PULSE 53; O2SAT 99
[2025-01-18 11:01] VITALS: BP 184/78; PULSE 55; O2SAT 99
== END 2025-01-18 11:14 | disposition home or self-care (01) ==
PROVIDERS: Emergency Provider Emergency Medicine; PCP Internal Medicine
DX: L03.116 Cellulitis of left lower limb (principal)
CPT/HCPCS: 73620; 99281; 99283